=== PATIENT | male | born 1975 | race Caucasian/White ===

== ENCOUNTER 2018-05-15 11:28 | Emergency (ER) | payer OTHER ==
[~2018-05-15] VITALS: Ht 188 cm; Wt 121.6 kg
[2018-05-15] MEDS ORDERED: ACETAMINOPHEN-1 EAC1 PO (14:10)
[2018-05-15] MEDS ORDERED: IBUPROFEN 800800 M1 PO (14:10)
[2018-05-15 15:38] VITALS: BP 138/97
== END 2018-05-15 15:40 | disposition home or self-care (01) ==
LOC: M.ERS 11:28
DX: S39.011A Strain of muscle, fascia and tendon of abdomen, initial encounter (principal); S39.82XA Other specified injuries of lower back, initial encounter; Z88.0 Allergy status to penicillin; W00.0XXA Fall on same level due to ice and snow, initial encounter; Y92.89 Other specified places as the place of occurrence of the external cause; Y93.89 Activity, other specified; Y99.8 Other external cause status